=== PATIENT | female | born 1980 | race African-American/Black ===

== ENCOUNTER 2023-10-02 17:31 | Emergency (ER) | payer MEDICAID ==
[~2023-10-02] VITALS: Ht 177.8 cm; Wt 95.0 kg
[2023-10-02 17:41] LABS: COVID AG,FIA SOURCE NASAL SWAB
[2023-10-02 18:08] LABS: INFLUENZA TYPE A NEGATIVE FOR TYPE A (NEGATIVE); INFLUENZA TYPE B NEGATIVE FOR TYPE B (NEGATIVE); SARS-COV2 (COVID) ANTIGEN,FIA Negative (Negative)
[2023-10-02 18:34] VITALS: BP 126/90; PULSE 80; RESP 18; TEMP 98.3
[2023-10-02] MEDS ORDERED: AMOX250C4 PO (18:45)
[2023-10-02] MEDS ORDERED: BENZ-227 PO (18:45)
[2023-10-02] MEDS ORDERED: IPRA30SP2 NASAL (18:46)
== END 2023-10-02 19:41 | disposition home or self-care (01) ==
LOC: EMS 17:47
DX: J32.9 Chronic sinusitis, unspecified (principal); Z90.49 Acquired absence of other specified parts of digestive tract; Z98.890 Other specified postprocedural states; Z20.822 Contact with and (suspected) exposure to COVID-19
CPT/HCPCS: 71045; 87804; 99284